=== PATIENT | male | born 1975 | race Caucasian/White ===

== ENCOUNTER 2020-02-04 02:49 | Emergency (ER) | payer MEDICARE, MEDICAID ==
[~2020-02-04] VITALS: Ht 175.3 cm; Wt 81.8 kg
--- NOTE | 2020-02-04 05:37 | PHYS DOC ---
General Adult EDM: Chief Complaint: PSYCH EVALUATION HPI: HPI: History obtained from parents. Patient is a 44-year-old male with history of schizoaffective disorder who presents with chief complaint of psychotic behavior. Parent states that his symptoms have been present for most week. They state that he was having difficulty sleeping therefore his primary care physician prescribed trazodone over the past 3 days. Father states that he took his first tablet earlier this evening but was exhibiting signs of psychosis prior to taking this tablet. Denies any drug or alcohol ingestions. Patient is able to tell me that he has no suicidal homicidal ideations. He denies any auditory visual hallucinations. Father states that he has had psychotic episodes in the past with several years ago. Denies any recent hospitalizations. Denies any changes to his antipsychotic medications. Does take risperidone daily. Denies fevers. Denies trauma. Denies any pain related complaints. (JULIOCESAR KIRBY DO) Review of Systems: Review of Systems: Constitutional: Denies fever or chills Eyes: Denies change in visual acuity HENT: Denies nasal congestion or sore throat Respiratory: Denies cough or shortness of breath Cardiovascular: Denies chest pain or edema GI: Denies abdominal pain, nausea, vomiting, bloody stools or diarrhea : Denies dysuria Musculoskeletal: Denies back pain or joint pain Integument: Denies rash Neurologic: Denies headache, focal weakness or sensory changes Endocrine: Denies polyuria or polydipsia Lymphatic: Denies swollen glands Psychiatric: Positive for psychosis (JULIOCESAR KIRBY DO) Allergies: Allergies: Allergies Coded Allergies Type Severity Reaction Last Updated Verified No Known Drug Allergies 02/04/20 No (JULIOCESAR KIRBY DO) Physical Exam: PE: Constitutional: Well developed, well nourished, no acute distress, non-toxic appearance. [] HENT: Normocephalic, atraumatic, bilateral external ears normal, oropharynx moist, no oral exudates, nose normal. [] Eyes: PERRLA, EOMI, conjunctiva normal, no discharge. [] Neck: Normal range of motion, no tenderness, supple, no stridor. [] Cardiovascular:Heart rate regular rhythm, no murmur [] Lungs & Thorax: Bilateral breath sounds clear to auscultation [] Abdomen: soft, no tenderness, no masses, no pulsatile masses. [] Skin: Warm, dry, no erythema, no rash. [] Back: No tenderness, no CVA tenderness. [] Extremities: No tenderness, no cyanosis, no clubbing, ROM intact, no edema. [] Neurologic: Alert and oriented X 3, normal motor function, normal sensory function, no focal deficits noted. [] Psychologic: Agitated affect. Tangential thought process. (JULIOCESAR KIRBY DO) PE: Constitutional: Well developed, well nourished, anxious, non-toxic appearance HENT: Normocephalic, atraumatic Eyes: PERRL, EOMI, conjunctiva normal, no discharge Neck: Normal range of motion, no tenderness, supple Lungs & Thorax: No respiratory distress, equal chest rise and fall Abdomen: Soft, no tenderness Skin: Warm, dry, no erythema, no rash Extremities: No tenderness, ROM intact, no edema Neurologic: Alert and oriented X 3, normal motor function, normal sensory function, no focal deficits noted Psychologic: Affect agitated, judgment abnormal (JERICA ARAIZA DO) EKG: EKG: [] EKG consistent with normal sinus rhythm. Ventricular rate 97 bpm. Freeman normal. Intervals normal. No acute ischemic changes noted. (JULIOCESAR KIRBY DO) Radiology/Procedures: Radiology/Procedures: [] (JULIOCESAR KIRBY DO) Heart Score: Risk Factors: Risk Factors: DM, Current or recent (<one month) smoker, HTN, HLP, family history of CAD, obesity. Risk Scores: Score 0 - 3: 2.5% MACE over next 6 weeks - Discharge Home Score 4 - 6: 20.3% MACE over next 6 weeks - Admit for Clinical Observation Score 7 - 10: 72.7% MACE over next 6 weeks - Early Invasive Strategies (JULIOCESAR KIRBY DO) Course & Med Decision Making: Course & Med Decision Making Pertinent Labs and Imaging studies reviewed. (See chart for details) [] Patient is a 44-year-old male who presents with chief complaint of agitation and psychosis. Does have history of schizoaffective disorder. All labs been overall reassuring at this point. He was given 20 mg of intramuscular Geodon on arrival due to his agitation. Has been resting comfortably since. Given his acute psychosis and family concerned he will require psychiatric evaluation prior to discharge. I have signed out the patient's emergency department care to Dr. Araiza. We discussed the history, physical exam findings, completed and pending laboratory results and imaging studies. We have also discussed the current treatment plan and expected clinical course. Please refer to chart for the patient's remaining emergency department course, final disposition, and clinical impression(s). (JULIOCESAR KIRBY DO) Course & Med Decision Making Sign out received from Dr. Kirby for patient pending psychiatric evaluation. Patient with pyschosis. Labs reviewed. Patient seen and evaluated by myself. Patient did require multiple dose of intermittent Geodon and/or Ativan. Sign out given to Dr. Ricci for further evaluation and final disposition. Discussed currently findings and plan with patient, who acknowledges understanding and agreement. (JERICA ARAIZA DO) Course & Med Decision Making I received signout from Dr. Araiza. Patient's labs reviewed by myself in [facility] and spoke with him and his biological mother. Patient required mild sedation with Versed due to agitation-pt in agreement with medication and has not slept the entire night. No other acute events during my shift. Patient accepted to [facility] by Dr. Pink. Patient medically cleared and stable for transfer. (CRICKET RICCI DO) Dragon Disclaimer: Dragon Disclaimer: This electronic medical record was generated, in whole or in part, using a voice recognition dictation system. (JULIOCESAR KIRBY DO) Departure Departure: Impression: Primary Impression: Psychosis Qualified Codes: F29 - Unspecified psychosis not due to a substance or known physiological condition Disposition: 67 DC/TRF TO PSYCH HOSP ([facility], Dr. Rhoades) Condition: STABLE Referrals: AYSE JONES MD (PCP) JULIOCESAR KIRBY DO Feb 04, 2020 05:37 JERICA ARAIZA DO Feb 05, 2020 04:30 CRICKET RICCI DO Feb 05, 2020 11:02
[2020-02-04 06:06] LABS: ACETAMIN < 2.0 mcg/mL (10-30); SALIC < 2.8 mg/dL (2.8-20.0)
[2020-02-04 07:41] LABS: BASO % 0 % (0-3); EOS % 0 % (0-3); HEMOGLOBIN 12.2 g/dL (13.0-17.5); LYMPH # 1.5 x10^3/uL (1.0-4.8); LYMPH % 11 % (24-48); MEAN CORPUSCULAR HEMOGLOBIN 28 pg (25-35); MEAN CORPUSCULAR HGB CONC 33 g/dL (31-37); MEAN CORPUSCULAR VOLUME 85 fL (79-100); MONO # 0.6 x10^3/uL (0.0-1.1); MONO % 5 % (0-9); NEUT % 83 % (31-73); PLATELET COUNT 307 x10^3/uL (140-400); RED BLOOD COUNT 4.36 x10^6/uL (4.30-5.70); RED CELL DISTRIBUTION WIDTH 13.7 % (11.5-14.5); WHITE BLOOD COUNT 13.2 x10^3/uL (4.0-11.0)
[2020-02-04 08:08] LABS: AMPHETAMINE/METHAMPHETAMINE NEG (NEG); BARBITURATES NEG (NEG); BENZODIAZEPINES NEG (NEG); CANNABINOIDS NEG (NEG); COCAINE NEG (NEG); METHADONE NEG (NEG); OPIATES NEG (NEG); PHENCYCLIDINE NEG (NEG)
[2020-02-04 08:20] LABS: ALBUMIN 4.6 g/dL (3.4-5.0); ALBUMIN/GLOBULIN RATIO 1.4 (1.0-1.7); CALCIUM 8.6 mg/dL (8.5-10.1); CREATININE 1.1 mg/dL (0.7-1.3); GFR 73.4; POTASSIUM 3.4 mmol/L (3.5-5.1); TOTAL BILIRUBIN 0.7 mg/dL (0.2-1.0); TOTAL PROTEIN 7.8 g/dL (6.4-8.2)
[2020-02-04] MEDS ORDERED: ZIPRASIDONE IM 20 MG VIAL. IM ONE (10:00)
--- NOTE | 2020-02-04 17:00 | EKG ---
[address] [address] Test Date: 2020-02-04 Test Time: 05:40:13 Pat Name: CHARITY ENCARNACION Department: Room: Gender: M Industrial Maintenance Electrician: : 1975 Requested By: JERICA ARAIZA Order Number: [id number] Reading MD: Measurements Intervals Street Rate: 97 P: 1 WY: 144 QRS: 75 QRSD: 82 T: 52 QT: 348 QTc: 446 Interpretive Statements SINUS RHYTHM NORMAL ECG RI6.02 No previous ECG available for comparison
[2020-02-05] MEDS ORDERED: ZIPRASIDONE IM 20 MG VIAL. IM ONE (00:30)
[2020-02-05] MEDS ORDERED: MIDAZOLAM HCL PF 5 MG/5 ML VIAL. IV ONE (09:00)
[2020-02-05 11:05] VITALS: BP 137/85
[2020-02-05] MEDS ORDERED: CALCIUM CARBONATE 500 MG TAB.CHEW PO PRN (11:15)
== END 2020-02-05 11:57 ==
LOC: ER 02:49
DX: F29 Unspecified psychosis not due to a substance or known physiological condition (principal); F25.9 Schizoaffective disorder, unspecified; R41.82 Altered mental status, unspecified
CPT/HCPCS: 36415; 80053; 80307; 80329; 85025; 93005; 96372; 96374; 96375; 96376; 99285; G0480; J2060; J2250; J3486